=== PATIENT | female | born 1965 | race Caucasian/White ===

== ENCOUNTER 2023-06-08 08:45 | Emergency (ER) | payer OTHER ==
[~2023-06-08] VITALS: Ht 162.6 cm; Wt 117.9 kg
[2023-06-08] MEDS: KETOROLAC 30MG VIAL (30MG/ML) IVP ONE (10:16)
[2023-06-08 10:17] VITALS: BP 155/59; PULSE 59; RESP 16; O2SAT 99
[2023-06-08] MEDS ORDERED: IBUP-2070 PO (10:20)
== END 2023-06-08 10:38 ==
LOC: EDH 08:45
DX: S00.03XA Contusion of scalp, initial encounter (principal); I10 Essential (primary) hypertension; E11.9 Type 2 diabetes mellitus without complications; E78.00 Pure hypercholesterolemia, unspecified; Z88.0 Allergy status to penicillin; Z88.8 Allergy status to other drugs, medicaments and biological substances; W18.39XA Other fall on same level, initial encounter; Y93.89 Activity, other specified; Y92.89 Other specified places as the place of occurrence of the external cause; Y99.8 Other external cause status
CPT/HCPCS: 99285; 70450; 96374; 72125; J1885